=== PATIENT | female | born 1985 | race Caucasian/White ===

== ENCOUNTER 2016-12-03 17:59 | Emergency (ER) | payer MEDICAID ==
[2016-12-03] MEDS ORDERED: IPRATROPIUM/ALBUTEROL 0.5/3 MG 3 ML AMPUL.NEB INHALATION ONE (18:32)
--- NOTE | 2016-12-03 18:53 | ER NURSING DOCUMENTATION ---
Nurse's Notes [facility] Name:Breanna Maldonado Age:30 yrs Sex:Female :1985 Arrival Date:12/03/2016 Time:17:59 Bed4 Private MD: Diagnosis:Bronchitis Asthmatic Presentation: 12/03 18:00 Acuity: NAKIA 3 rh 18:11 Presenting complaint: Patient states: 2 weeks pt has had cough, body aches and a rh headache. Pt decided to come in tonight because he chest felt tight. Denies fever/chills. Transition of care: Home. 18:11 Method Of Arrival: Walk In Triage Assessment: 18:13 General: Appears in no apparent distress, Behavior is anxious, cooperative. Pain: rh Complains of pain in chest. EENT: Oral mucosa is dry. Neuro: Level of Consciousness is awake, alert, obeys commands. Cardiovascular: Capillary refill < 3 seconds Chest pain quality is Tightness. Respiratory: Airway is patent Respiratory effort is even, unlabored, Reports cough that is Denies shortness of breath. GI: Denies diarrhea, nausea, vomiting. : No deficits noted. Derm: Skin is intact, is healthy with good turgor, Skin is pink, warm & dry. Historical: - Allergies: No known drug Allergies; - Home Meds: 1. Effexor Oral 2. Abilify oral 3. Albuterol Inhl - PMHx: Asthma; - PSHx: ; TUBAL LIGATION; - Tetanus: < 10 years. - Ebola Screening: : Patient negative for fever greater than or equal to 101.5 degrees Fahrenheit, and additional compatible Ebola Virus Disease symptoms. - Immunization history: Flu Vaccine < 1 year. - Social history: Smoking status: Patient uses tobacco products, light tobacco smoker. Screenin:16 Infectious Disease Risk None. Abuse screen: Denies threats or abuse. Denies injuries rh from another. Nutritional screening: No deficits noted. Assessment: 18:15 See Triage Assessment done by same RN. Vital Signs: 18:05 BP 122 / 75; Pulse 103; Resp 18; Temp 98.3(O); Pulse Ox 98% on R/A; Weight 74.39 kg; rh Height 5 ft. 5 in. (165.10 cm); Pain 6/10; 18:52 BP 125 / 75; Pulse 95; Resp 16; Pulse Ox 98% on R/A; rh 18:05 Body Mass Index 27.29 (74.39 kg, 165.10 cm) rh ED Course: 17:59 Patient arrived in ED. ds 18:00 Elaine Waldrop is Primary Nurse. 18:00 Triage completed. rh 18:10 Pio Ferreira MD is Attending Physician. tl1 18:10 Notified ED Physician of patient's arrival and chief complaint. Dr. Ferreira notified. rh 18:16 Valuables Remains with patient Patient has correct armband on for positive rh identification. Bed in low position. Call light in reach. 18:23 Patient moved to radiology. pm1 18:34 Patient moved back from radiology. pm1 Administered Medications: 18:24 Drug: predniSONE 40 mg; Route: PO; rh 18:27 Follow up: Response: No adverse reaction rh 18:24 Drug: DuoNeb (Albuterol 2.5 mg, Atrovent 0.5 mg); 3 ml; Route: Nebulizer; rh 18:39 Follow up: Response: No adverse reaction Outcome: 18:39 Discharge ordered by . tl1 18:52 Discharged to home ambulatory. rh 18:52 Condition: improved 18:52 Discharge Assessment: Patient awake, alert and oriented x 3. No cognitive and/or functional deficits noted. Patient verbalized understanding of disposition instructions. 18:52 Discharge instructions given to patient, Instructed on discharge instructions, follow up and referral plans. medication usage, Demonstrated understanding of instructions, medications, Prescriptions given X 2. 18:52 Patient left the ED. 12/04 09:52 Discharge F/U Call: Spoke with: patient. What is the one thing you feel we could do st to improve? Patient's answer: pt is feeling much better today. Pt has no questions or concerns at this time and thanked us for the call. Signatures: Carmen Rea, RN RN st ot, [place], Shantanu Cagle pm1 Pio Ferreira MD MD tl1 Elaine Waldrop
--- NOTE | 2016-12-03 18:53 | ER PHYSICIAN DOCUMENTATION ---
Physician Documentation [facility] Name:Breanna Maldonado Age:30 yrs Sex:Female :1985 Arrival Date:12/03/2016 Time:17:59 Bed4 Private MD: Pio Steinberg Disposition: 12/03 18:56 Chart complete. tl1 Disposition: 12/03/16 18:39 Discharged to Home/Self Care. Impression: Bronchitis Asthmatic. - Condition is Good. - Discharge Instructions: ASTHMATIC BRONCHITIS Adult - BRONCHITIS w/ Wheezing (Adult). - Prescriptions for Ventolin HFA 90 mcg/actuation Inhalation HFA aerosol inhaler - inhale 2 puff by INHALATION route every 4-6 hours; 1 Inhaler. Prednisone 20 mg Oral Tablet - take 2 tablet by ORAL route once daily for 5 days; 10 tablet. - Medical Reconciliation form form. - Follow up: Private Physician; When: 4- 6 days; Reason: Recheck today's complaints, Continuance of care. - Problem is an acute exacerbation. - Symptoms have improved. HPI: 18:10 This 30 yrs old Female presents to ER with complaints of Cough. tl1 18:21 This 30 yrs old Female presents to ER via Walk In with complaints of Cough. tl1 18:21 She has a long h/o asthma, but when well, uses her albuterol MDI 2-3 times a month, tl1 usually only with heavy exercise. For the last 2 weeks she has had a dry cough, that started with rhinorrhea and a sore throat. Over the last 4 days, cough is worse and now productive of sputum. Today she has had chest heaviness and has used her albuterol 3 times with some relief. No f/c/s. No CP or hemoptysis. No RF for PE. No h/o heart problems.. Historical: - Allergies: No known drug Allergies; - Home Meds: 1. Effexor Oral 2. Abilify oral 3. Albuterol Inhl - PMHx: Asthma; - PSHx: ; TUBAL LIGATION; - Tetanus: < 10 years. - Ebola Screening: : Patient negative for fever greater than or equal to 101.5 degrees Fahrenheit, and additional compatible Ebola Virus Disease symptoms. - Immunization history: Flu Vaccine < 1 year. - Social history: Smoking status: Patient uses tobacco products, light tobacco smoker. ROS: 18:26 Respiratory: Positive for cough, with yellow sputum, wheezing, Negative for dyspnea on tl1 exertion, orthopnea, shortness of breath. 18:26 All other systems are negative. Exam: 18:26 Constitutional: This is a well developed, well nourished patient who is awake, alert, tl1 and in no acute distress. Head/Face: Normocephalic, atraumatic. Eyes: Pupils equal round and reactive to light, extra-ocular motions intact. Lids and lashes normal. Conjunctiva and sclera are non-icteric and not injected. Cornea within normal limits. Periorbital areas with no swelling, redness, or edema. ENT: Nares patent. No nasal discharge, no septal abnormalities noted. Tympanic membranes are normal and external auditory canals are clear. Oropharynx with no redness, swelling, or masses, exudates, or evidence of obstruction, uvula midline. Mucous membranes moist. 18:26 Neck: Trachea midline, no thyromegaly or masses palpated, and no cervical tl1 lymphadenopathy. Supple, full range of motion without nuchal rigidity, or vertebral point tenderness. No Meningismus. 18:26 Cardiovascular: Rate: normal, Rhythm: regular, Heart sounds: normal, Edema: is not appreciated, JVD: is not appreciated. 18:26 Respiratory: the patient does not display signs of respiratory distress, Respirations: normal, Breath sounds: rales, are not appreciated, rhonchi, that are mild, are scattered, wheezing, is not appreciated, bronchial sounds, are not appreciated, decreased breath sounds, that are moderate. 18:26 Abdomen/GI: Palpation: abdomen is soft and non-tender. 18:26 Musculoskeletal/extremity: Exam is negative for acute changes. 18:26 Skin: Exam negative for acute changes. 18:26 Neuro: Orientation: is normal, Mentation: is normal, Memory: is normal, Motor: moves all fours. Vital Signs: 18:05 BP 122 / 75; Pulse 103; Resp 18; Temp 98.3(O); Pulse Ox 98% on R/A; Weight 74.39 kg; rh Height 5 ft. 5 in. (165.10 cm); Pain 6/10; 18:52 BP 125 / 75; Pulse 95; Resp 16; Pulse Ox 98% on R/A; rh 18:05 Body Mass Index 27.29 (74.39 kg, 165.10 cm) rh MDM: 18:10 Patient medically screened. tl1 18:35 Differential Diagnosis: Bronchitis Asthma Exacerbation Viral Syndrome Pneumonia. Data tl1 reviewed: and as a result, I will discharge patient. Test interpretation: by ED physician or midlevel provider: plain radiologic studies. Counseling: I had a detailed discussion with the patient and/or guardian regarding: the historical points, exam findings, and any diagnostic results supporting the discharge/admit diagnosis, radiology results, the need for outpatient follow up, to return to the emergency department if symptoms worsen or persist or if there are any questions or concerns that arise at home. Medication response: The patient's symptoms have improved, Response to treatment: the patient's symptoms have markedly improved after treatment, and as a result, I will discharge patient. ED course: Better with duoneb.. 18:50 Special discussion: 2 view CXR looks normal to me. No infiltrate or hyperinflation.. tl1 Dispensed Medications: 18:24 Drug: predniSONE 40 mg; Route: PO; rh 18:27 Follow up: Response: No adverse reaction rh 18:24 Drug: DuoNeb (Albuterol 2.5 mg, Atrovent 0.5 mg); 3 ml; Route: Nebulizer; rh 18:39 Follow up: Response: No adverse reaction rh Signatures: Pio Ferreira MD MD tl1 Elaine Waldrop rh
--- NOTE | 2016-12-04 07:06 | RADIOLOGY REPORT ---
Two views of the chest, without prior films for comparison, demonstrate the heart, vessels and lungs to be unremarkable. No infiltrate, fluid or pneumothorax is seen. IMPRESSION: Unremarkable two views of the chest. MTDD
== END 2016-12-03 18:52 | disposition home or self-care (01) ==
LOC: ER 17:59
DX: J45.998 Other asthma (principal); F17.210 Nicotine dependence, cigarettes, uncomplicated; Z79.899 Other long term (current) drug therapy
CPT/HCPCS: 71020; 94640; 99284; J7512; J7620